=== PATIENT | male | born 1935 | race Caucasian/White ===

== ENCOUNTER 2018-07-01 19:24 | Observation (INO) | payer OTHER ==
--- OUTSIDE RECORDS SUMMARY | 2018-07-01 19:26 | XMS REPORT | Clinical Summary ---
:1935 Author Organization [facility] Address [address] [place] [id number] Care Team Providers Name Role Phone Atul Jones MD Primary Care Provider Allergies No Known Allergies Medications Medication Sig Dispensed Refills Start Date End Date Status diclofenac (VOLTAREN) Apply topically 4 100 g 2 03/02/2018 Active 1 % gel (four) times a day. Active Problems Problem Noted Date Chronic ankle pain, bilateral 03/02/2018 Encounters Date Type Specialty Care Team Description 03/02/2018 Office Visit Orthopedic Surgery Guy Starks, Arthritis of ankle (Primary Dx); Acute bilateral ankle pain 03/02/2018 Orders Only Orthopedic Surgery Arroyo, Shasha Chronic ankle pain, bilateral (Primary Dx) 03/02/2018 Orders Only Orthopedic Surgery Arroyo, Shasha after 06/30/2017 Social History Tobacco Use Types Packs/Day Years Used Date Never Assessed Sex Assigned at Date Recorded Not on file Job Start Date Occupation Industry Not on file Not on file Not on file Travel History Travel Start Travel End No recent travel history available. Last Filed Vital Signs Not on file Plan of Treatment Date Type Specialty Care Team Description 07/13/2018 Office Visit Orthopedic Surgery Guy Starks MD [address] [facility] [address] [place] [address] Health Maintenance Due Date Last Done Comments SHINGLES VACCINES (1 of 2) 1986 PNEUMOCOCCAL POLYSACCHARIDE VACCINE AGE 65 AND OVER 2001 PNEUMOCOCCAL-13 2001 INFLUENZA VACCINE 02/08/2018 Procedures Procedure Name Priority Date/Time Associated Diagnosis Comments XR ANKLE 3 VW Routine 03/02/2018 10:52 AM Acute bilateral Results for this BILATERAL CDT ankle pain procedure are in the results section. after 06/30/2017 Results XR Ankle 3 Vw Bilateral (03/02/2018 10:52 AM CDT) Narrative Performed At 3 views of bilateral ankles obtained today demonstrate no acute fractures [facility] or dislocations.Mild degenerative changes are seen at the tibiotalar and subtalar joint.Osteopenia is present. Performing Organization Address City/State/Zipcode Phone Number [facility] [address] [place] [address] after 06/30/2017 Insurance Payer Benefit Plan / Group Subscriber ID Type Phone Address [employer] MEDICARE HU[employer]NA MEDICARE PPO/PFFS/[facility] xxxxxxxxx PPO Advance Directives Patient has advance care planning documents on file. For more information, please contact:Ray Rivas[address] [place] [address]
[2018-07-01 20:43] LABS: Absolute Lymphocytes (CBC) 2.5 K/uL (0.7-4.9); Absolute Monocytes 1.2 K/uL (0.1-1.3); Basophils % 1.4 % (0-1.3); Eosinophils % 1.5 % (0-4.4); Hematocrit 41.4 % (39.6-49.0); Lymphocytes % 20.5 % (15.3-44.8); MPV 7.7 fL (7.6-11.3); Monocytes % 9.8 % (3.3-12.3); RBC Red Blood Cell Count 4.03 M/uL (4.33-5.43)
[2018-07-01] MEDS ORDERED: FENTANYL CITR 100 MCG/2 ML ONE (20:50)
[2018-07-01] MEDS ORDERED: ONDANSETRON 4 MG/2 ML VIAL ONE (20:50)
[2018-07-01] MEDS ORDERED: NA CHLORIDE 0.9% 1,000 ML ONE (20:51)
[2018-07-01 20:52] LABS: Protime INR 1.03
[2018-07-01 21:10] LABS: ALT/SGPT 58 U/L (12-78); AST/SGOT 25 U/L (15-37); Albumin 3.4 g/dL (3.4-5.0); Alkaline Phosphatase 128 U/L (45-117); BUN Blood Urea Nitrogen 20 mg/dL (7-18); Bicarbonate 24 mmol/L (21-32); Bilirubin Direct 0.2 mg/dL (0-0.2); Bilirubin Total 0.5 mg/dL (0.2-1.0); Glucose Level 121 mg/dL (74-106); Lipase 85 U/L (73-393); Magnesium 2.9 mg/dL (1.8-2.4); NT PRO-BNP 160 pg/mL (<450); Potassium 4.3 mmol/L (3.5-5.1); Protein, Total 7.8 g/dL (6.4-8.2); Sodium Level 136 mmol/L (136-145); Troponin (Emerg Dept Use Only) < 0.02 ng/mL (0.0-0.045)
--- NOTE | 2018-07-01 21:15 | RAD REPORT ---
EXAM DESCRIPTION: RAD - Chest Single View - 07/01/2018 8:53 pm CLINICAL HISTORY: Abdominal pain, abdominal distention COMPARISON: August 2017 TECHNIQUE: AP portable chest image was obtained 2038 hours . FINDINGS: Lung volumes are low accentuating heart, vasculature and lung markings. Lung markings are not substantially different. Shallow inspiration and portable technique could mask early left base in filtrate. Significant failure or volume overload are doubtful. Heart size is stable, magnified by the shallow inspiration and portable technique. No measurable pleural effusion and no pneumothorax. Underlying bony degenerative changes are present. There are fracture changes involving the proximal r ight humerus. No directed imaging at this facility. Correlation is needed with any history of right p roximal humerus fracture. The proximal right humerus is only partially imaged on this study. No acute aortic findings suspected. IMPRESSION: Limited shallow inspiration film not substantially different from August comparison. Chronic lung parenchymal opacification, shallow inspiration and under penetrated technique can result in masked lung base infiltrates. Proximal right humerus is fractured but only partially imaged on this study. Correlation is needed wi th any history.
--- NOTE | 2018-07-01 21:15 | RAD REPORT ---
EXAM DESCRIPTION: CT - Stone Protocol - 07/01/2018 8:42 pm CLINICAL HISTORY: Abdominal pain, back pain, abdominal distention COMPARISON: None. TECHNIQUE: Axial 5 mm thick images were obtained without oral or IV contrast. The [id number] span s the entirety of the system including uppermost abdomen and lung bases. All CT scans are performed using dose optimization technique as appropriate and may include automated exposure control or mA/KV adjustment according to patient size. FINDINGS: No hydronephrosis is present and no obstructing ureteral calculi. Small nonobstructing maylin yx calcification in each kidney. No suspicious renal masses. Isodense masses and pyelonephritis are n ot excluded on a stone protocol CT scan. No urinary bladder suspicious finding. No significant adrena l finding. Imaged portions of the liver, spleen and pancreas show no suspicious findings on non-contrast imaging . Liver attenuation is borderline to mildly fatty infiltrated. No gallbladder or biliary tree abnorma lity. No suspicious bowel findings. Moderate stool volume in the colon. Sigmoid colon is tortuous and redun dant reaching the anterior upper right abdomen. No active GI process seen. No mass or bulky lymphadenopathy. Fat extends into the origin of each inguinal canal. No free air, fr ee fluid or inflammatory stranding. No significant bony abnormality. Interstitial markings are prominent in each lung base. No pleural fluid collection. No dense consolid ation or mass. No pericardial thickening or effusion. The is IMPRESSION: No hydronephrosis, obstructing calculus or acute finding. Each kidney has a nonobstru ctive calyx calcification. Isodense masses and pyelonephritis are not excluded on stone protocol technique. Liver is borderline to mildly fatty infiltrated.
[2018-07-01] MEDS ORDERED: CIPROFLOXACIN 400mg IV 400 MG/200 ML BAG IV ONE (21:41)
[2018-07-01] MEDS ORDERED: METRONIDAZOLE 500mg IVPB 500 MG/100 ML BAG IV ONE (21:41)
--- NOTE | 2018-07-01 22:06 | RAD REPORT ---
EXAM DESCRIPTION: CT - Angio Aorta For Dissection - 07/01/2018 9:50 pm CLINICAL HISTORY: Abdominal pain, abdominal distention, pain of the chest radiating to the back COMPARISON: CT abdomen and pelvis same date, CT chest September 05, 2017 TECHNIQUE: Dynamically enhanced 3 mm thick images of the chest, abdomen, and upper pelvis were obtai dominguez during administration of approximately 150mL Isovue 370 IV contrast. Sagittal and coronal reconst ruction images were generated using MIP and reviewed. Exam utilizes a protocol to evaluate entire cou rse of the aorta. All CT scans are performed using dose optimization technique as appropriate and may include automated exposure control or mA/KV adjustment according to patient size. FINDINGS: Aorta is normal in diameter with no dissection or other acute aortic findings. Reconstruct ion images show no significant findings. Pulmonary arteries are normal as well. No cardiomegaly, pericardial thickening or pericardial effusio n. No focal mass or consolidation. Prominent interstitial markings are present in a pattern similar to c omparison. This would indicate that this is fibrotic lung disease and not chronic interstitial infilt rate. Minimal parenchymal nodularity has not changed. No pleural thickening, pleural effusion or pneu mothorax. No abnormal mediastinal or hilar mass or lymphadenopathy seen. No chest wall mass or abnormal axillar y lymphadenopathy. Celiac, SMA and renal arteries show no suspicious findings. Solid abdominal viscera and bowel show no new findings from earlier study. No new abdomen or pelvis findings. IMPRESSION: Negative CT scan of the aorta for acute finding. Chronic interstitial fibrotic change matching a August 2015 study. No other significant findings on chest, abdomen and upper pelvis examination.
[2018-07-01 22:41] LABS: Urine Blood NEGATIVE (NEG); Urine Glucose NEGATIVE (NEG); Urine Protein NEGATIVE (NEG); Urine Specific Gravity 1.015 (1.005-1.030)
--- NOTE | 2018-07-01 22:46 | ER ---
Nurse's Notes [facility] Name: Mick Sabillon Age: 82 yrs Sex: Male : 1935 Arrival Date: 07/01/2018 Time: 19:26 Bed 16 Private MD: Diagnosis: Abdominal tenderness;Dementia in other diseases classified elsewhere Presentation: 07/01 19:35 Presenting complaint: Patient states: "I've passed stones before, that what's happening aj1 now, they usually just give me a shot of Demerol and send me on my way" Patient reports lower back pain for the past week that has gotten worse over the past 2 days. Patient reports taking hydrocodone, but it isn't helping the pain. Transition of care: patient was not received from another setting of care. Onset of symptoms was June 2018. Risk Assessment: Do you want to hurt yourself or someone else? Patient reports no desire to harm self or others. Initial Sepsis Screen: Does the patient meet any 2 criteria? HR > 90 bpm. No. Patient's initial sepsis screen is negative. Does the patient have a suspected source of infection? Yes: Dysuria/Frequency/Urgency/UTI. Care prior to arrival: None. 19:35 Method Of Arrival: Wheelchair aj1 19:35 Acuity: TIMOTHY 3 aj1 Triage Assessment: 19:38 General: Appears in no apparent distress. uncomfortable, Behavior is calm, cooperative, aj1 appropriate for age. Pain: Complains of pain in back Pain currently is 10 out of 10 on a pain scale. Neuro: Level of Consciousness is awake, alert, obeys commands. Cardiovascular: Patient's skin is warm and dry. Respiratory: Airway is patent Respiratory effort is even, unlabored, Respiratory pattern is regular, symmetrical. Musculoskeletal: Range of motion: intact in all extremities. Historical: - Allergies: 19:38 No Known Allergies; aj1 - PMHx: 19:38 Anxiety; Atrial Fib; Brain bleed; Chronic pain; Depression; FACTOR 5; factor 5 leiden; aj1 Gastric Reflux; GERD; possibly CHF or pedal edema-unknown reason for taking Lasix; - Immunization history:: Flu vaccine is up to date. - Social history:: Smoking status: Patient/guardian denies using tobacco. - Ebola Screening: : Patient denies travel to an Ebola-affected area in the 21 days before illness onset. - Family history:: not pertinent. Screenin:46 Abuse screen: Denies threats or abuse. Denies injuries from another. Nutritional cc3 screening: No deficits noted. Tuberculosis screening: No symptoms or risk factors identified. Fall Risk Ambulatory Aid- None/Bed Rest/Nurse Assist (0 pts). Gait- Weak (10 pts.). Mental Status- Oriented to own ability (0 pts). Assessment: 19:46 General: Appears in no apparent distress. comfortable, Behavior is calm, cooperative, cc3 appropriate for age. Pain: Complains of pain in posterior aspect of right lateral abdomen and anterior aspect of right lateral abdomen and suprapubic area and abdomen and right lower quadrant and right upper quadrant and right low back and right mid back and back. Neuro: Level of Consciousness is awake, alert, obeys commands, Oriented to person, place, time, situation, Appropriate for age. Cardiovascular: Denies chest pain. Respiratory: Airway is patent Respiratory effort is even, unlabored, Respiratory pattern is regular, symmetrical. GI: Abdomen is round distended. : No signs and/or symptoms were reported regarding the genitourinary system. EENT: No signs and/or symptoms were reported regarding the EENT system. Derm: dry and scaly skin with dry healed wounds all over his face and bilateral upper extremities. Musculoskeletal: Circulation, motion, and sensation intact. Range of motion: limited in bilateral lower limbs. 20:30 Reassessment: Patient appears in no apparent distress at this time. Patient and/or cc3 family updated on plan of care and expected duration. Pain level reassessed. Patient is alert, oriented x 3, equal unlabored respirations, skin warm/dry/pink. Patient's daughter Farrah left her mobile number [phone] and [phone]. 21:40 Reassessment: Patient appears in no apparent distress at this time. Patient and/or cc3 family updated on plan of care and expected duration. Pain level reassessed. Patient is alert, oriented x 3, equal unlabored respirations, skin warm/dry/pink. 22:15 Reassessment: Patient appears in no apparent distress at this time. Patient and/or cc3 family updated on plan of care and expected duration. Pain level reassessed. Patient is alert, oriented x 3, equal unlabored respirations, skin warm/dry/pink. 23:20 Reassessment: Patient complains of itchiness on the left hand while the IV cc3 Ciprofloxacin is ongoing so stopped the IV antibiotic and informed Dr. Rosenberg, no new orders made. 23:45 Reassessment: Patient complains of back pain, informed Dr. Rosenberg but no new orders cc3 made. Patient for admission, room available in 213, report handed over to BIBI Zapata for continuity of care. 07/02 00:20 Reassessment: Patient appears in no apparent distress at this time. Patient and/or cc3 family updated on plan of care and expected duration. Pain level reassessed. Patient is alert, oriented x 3, equal unlabored respirations, skin warm/dry/pink. Patient left ER for admission vitally stable by stretcher escorted by equipment maint tech Ton. Vital Signs: 07/01 19:38 BP 119 / 74; Pulse 97; Resp 18; Temp 97.9; Pulse Ox 95% on R/A; Weight 86.18 kg (R); aj1 Pain 10/10; 20:25 BP 129 / 69; Pulse 95; Resp 18 S; Pulse Ox 95% on R/A; cc3 21:40 BP 127 / 69; Pulse 95; Resp 17 S; Pulse Ox 96% on R/A; cc3 22:35 BP 123 / 67; Pulse 93; Resp 17 S; Pulse Ox 95% on R/A; cc3 23:20 BP 112 / 79; Pulse 89; Resp 17 S; Pulse Ox 95% on R/A; cc3 07/02 00:15 BP 105 / 94; Pulse 93; Resp 17 S; Pulse Ox 95% on R/A; cc3 ED Course: 07/01 19:26 Patient arrived in ED. ag3 19:37 Triage completed. aj1 19:38 Arm band placed on Patient placed in an exam room. aj1 19:43 David Rosenberg MD is Attending Physician. [facility] 19:46 Nicole Goldsmith is Primary Nurse. cc3 19:46 Patient has correct armband on for positive identification. Placed in gown. Bed in low cc3 position. Call light in reach. Side rails up X2. gambling monitor on. Pulse ox on. NIBP on. 20:20 Inserted saline lock: 22 gauge in left hand, using aseptic technique. Blood collected. cc3 inserted by BIBI Aguilar. 20:42 CT Stone Protocol In Process Unspecified. EDMS 20:47 CT completed. Patient moved back from CT. bq 20:50 XRAY Chest (1 view) In Process Unspecified. EDMS 21:51 CT Aorta for Dissection In Process Unspecified. EDMS 22:41 Angela Baker MD is Hospitalizing Provider. laurel 23:45 No provider procedures requiring assistance completed. Patient admitted, IV remains in cc3 place. Administered Medications: 20:50 Drug: NS 0.9% 1000 ml Route: IV; Rate: 125 ml/hr; Site: left hand; cc3 23:45 Follow up: Response: No adverse reaction; IV Status: Infusion continued upon admission cc3 20:55 Drug: fentaNYL (PF) 50 mcg Route: IVP; Site: left hand; cc3 21:30 Follow up: Response: No adverse reaction cc3 21:02 Drug: Zofran 4 mg Route: IVP; Site: left hand; cc3 21:30 Follow up: Response: No adverse reaction cc3 22:15 Drug: Flagyl 500 mg Volume: 100 ml; Route: IVPB; Rate: 200 ml/hr; Infused Over: 30 rr5 mins; Site: left forearm; 22:45 Follow up: Response: No adverse reaction; IV Status: Completed infusion; IV Intake: cc3 100ml 22:20 Drug: Cipro 400 mg Volume: 200 ml; Route: IVPB; Infused Over: 60 mins; Site: left hand; rr5 Intake: 22:45 IV: 100ml; Total: 100ml. cc3 Outcome: 22:46 Decision to Hospitalize by Provider. laurel 23:45 Admitted to Med/surg accompanied by tech, via stretcher, room 213, with chart, Report cc3 called to BIBI Zapata 23:45 Condition: stable 23:45 Instructed on the need for admit, Demonstrated understanding of instructions. 07/02 00:30 Patient left the ED. cc3 Signatures: Dispatcher [employer] Gaye Ceja RN RN aj1 David Rosenberg MD MD cha Quilty, Betty bq Cordel, Charlene cc3 Kiley Lira Raymond, RN RN rr5 Corrections: (The following items were deleted from the chart) 03:46 07/01 20:30 Reassessment: Patient's daughter Farrah left her mobile number [phone] cc3 and [phone]. cc3 07/02 03:52 07/01 23:20 Reassessment: Patient complains of itchiness on the left hand while the IV cc3 Ciprofloxacin is ongoing so stopped the IV antibiotic and informed Dr. Rosenberg, no new orders made. cc3 07/02 03:52 07/01 23:45 Reassessment: Patient for admission, room available in 213, report handed cc3 over to BIBI Zapata for continuity of care. cc3
--- NOTE | 2018-07-01 22:47 | EDPHYS ---
Physician Documentation [facility] Name: Mick Sabillon Age: 82 yrs Sex: Male : 1935 Arrival Date: 07/01/2018 Time: 19:26 Bed 16 Private MD: ED Physician David Rosenberg HPI: 07/01 20:22 This 82 yrs old Male presents to ER via Wheelchair with complaints of Back laurel Pain. 20:22 The patient presents with pain that is acute, with no known mechanism of injury. The laurel symptoms are located in the right mid back and right low back. Onset: The symptoms/episode began/occurred 1 day(s) ago. The pain radiates to the right upper quadrant and right lower quadrant. Associated signs and symptoms: The patient has no apparent associated signs or symptoms. The problem was sustained from unknown cause. Modifying factors: The patient symptoms are alleviated by nothing, the patient symptoms are aggravated by any movement, walking. Severity of symptoms: At their worst the symptoms were. The patient has experienced similar episodes in the past, several times. Historical: - Allergies: 19:38 No Known Allergies; aj1 - PMHx: 19:38 Anxiety; Atrial Fib; Brain bleed; Chronic pain; Depression; FACTOR 5; factor 5 leiden; aj1 Gastric Reflux; GERD; possibly CHF or pedal edema-unknown reason for taking Lasix; - Immunization history:: Flu vaccine is up to date. - Social history:: Smoking status: Patient/guardian denies using tobacco. - Ebola Screening: : Patient denies travel to an Ebola-affected area in the 21 days before illness onset. - Family history:: not pertinent. ROS: 20:22 Constitutional: Negative for fever, chills, and weight loss, Eyes: Negative for injury, laurel pain, redness, and discharge, ENT: Negative for injury, pain, and discharge, Neck: Negative for injury, pain, and swelling, Cardiovascular: Negative for chest pain, palpitations, and edema, Respiratory: Negative for shortness of breath, cough, wheezing, and pleuritic chest pain, Back: Negative for injury and pain, : Negative for injury, bleeding, discharge, and swelling, MS/Extremity: Negative for injury and deformity, Skin: Negative for injury, rash, and discoloration, Neuro: Negative for headache, weakness, numbness, tingling, and seizure, Psych: Negative for depression, anxiety, suicide ideation, homicidal ideation, and hallucinations, Allergy/Immunology: Negative for hives, rash, and allergies, Endocrine: Negative for neck swelling, polydipsia, polyuria, polyphagia, and marked weight changes, Hematologic/Lymphatic: Negative for swollen nodes, abnormal bleeding, and unusual bruising. 20:22 Abdomen/GI: Positive for abdominal pain, of the suprapubic area, anterior aspect of right lateral abdomen, posterior aspect of right lateral abdomen, right upper quadrant and right lower quadrant. Exam: 20:24 Constitutional: This is a well developed, well nourished patient who is awake, alert, laurel and in no acute distress. Head/Face: Normocephalic, atraumatic. Eyes: Pupils equal round and reactive to light, extra-ocular motions intact. Lids and lashes normal. Conjunctiva and sclera are non-icteric and not injected. Cornea within normal limits. Periorbital areas with no swelling, redness, or edema. ENT: Nares patent. No nasal discharge, no septal abnormalities noted. Tympanic membranes are normal and external auditory canals are clear. Oropharynx with no redness, swelling, or masses, exudates, or evidence of obstruction, uvula midline. Mucous membranes moist. Neck: Trachea midline, no thyromegaly or masses palpated, and no cervical lymphadenopathy. Supple, full range of motion without nuchal rigidity, or vertebral point tenderness. No Meningismus. Chest/axilla: Normal chest wall appearance and motion. Nontender with no deformity. No lesions are appreciated. Cardiovascular: Regular rate and rhythm with a normal S1 and S2. No gallops, murmurs, or rubs. Normal PMI, no JVD. No pulse deficits. Respiratory: Lungs have equal breath sounds bilaterally, clear to auscultation and percussion. No rales, rhonchi or wheezes noted. No increased work of breathing, no retractions or nasal flaring. Back: No spinal tenderness. No costovertebral tenderness. Full range of motion. Male : Normal genitalia with no discharge or lesions. Skin: Warm, dry with normal turgor. Normal color with no rashes, no lesions, and no evidence of cellulitis. MS/ Extremity: Pulses equal, no cyanosis. Neurovascular intact. Full, normal range of motion. Neuro: Awake and alert, GCS 15, oriented to person, place, time, and situation. Cranial nerves II-XII grossly intact. Motor strength 5/5 in all extremities. Sensory grossly intact. Cerebellar exam normal. Normal gait. Psych: Awake, alert, with orientation to person, place and time. Behavior, mood, and affect are within normal limits. 20:24 Abdomen/GI: Inspection: distension, Bowel sounds: normal, Palpation: moderate abdominal tenderness, in the suprapubic area, right upper quadrant and right lower quadrant, Liver: no appreciated palpable abnormalities, Hernia: not appreciated. Vital Signs: 19:38 BP 119 / 74; Pulse 97; Resp 18; Temp 97.9; Pulse Ox 95% on R/A; Weight 86.18 kg (R); aj1 Pain 10/10; 20:25 BP 129 / 69; Pulse 95; Resp 18 S; Pulse Ox 95% on R/A; cc3 21:40 BP 127 / 69; Pulse 95; Resp 17 S; Pulse Ox 96% on R/A; cc3 22:35 BP 123 / 67; Pulse 93; Resp 17 S; Pulse Ox 95% on R/A; cc3 23:20 BP 112 / 79; Pulse 89; Resp 17 S; Pulse Ox 95% on R/A; cc3 07/02 00:15 BP 105 / 94; Pulse 93; Resp 17 S; Pulse Ox 95% on R/A; cc3 MDM: 07/01 19:43 Patient medically screened. [facility] 20:25 Data reviewed: vital signs, nurses notes, lab test result(s), EKG, radiologic studies, [facility] CT scan, plain films. 07/01 20:21 Order name: Basic Metabolic Panel; Complete Time: 21:14 [facility] 07/01 20: Order name: CBC with Diff; Complete Time: 21:14 [facility] 07/01 20:21 Order name: LFT's; Complete Time: 21:14 [facility] 07/01 20:21 Order name: Magnesium; Complete Time: 21:14 [facility] 07/01 20:21 Order name: NT PRO-BNP; Complete Time: 21:14 [facility] 07/01 20:21 Order name: PT-INR; Complete Time: 21:14 [facility] 07/01 20:21 Order name: Troponin (emerg Dept Use Only); Complete Time: 21:14 [facility] 07/01 20:21 Order name: Lipase; Complete Time: 21:14 [facility] 07/01 20:21 Order name: Urine Culture [facility] 07/01 22:20 Order name: Urine Dipstick--Ancillary (enter results) 07/01 23:30 Order name: CBC with Automated Diff [facility] 07/01 23:30 Order name: CBC with Automated Diff [facility] 07/01 23:30 Order name: Comprehensive Metabolic Panel [facility] 07/01 23:30 Order name: Comprehensive Metabolic Panel [facility] 07/01 20:21 Order name: XRAY Chest (1 view); Complete Time: 21:19 [facility] 07/01 20:21 Order name: EKG; Complete Time: 20:22 [facility] 07/01 20:21 Order name: Cardiac monitoring; Complete Time: 20:29 [facility] 07/01 20:21 Order name: EKG - Nurse/Tech; Complete Time: 21:04 [facility] 07/01 20:21 Order name: IV Saline Lock; Complete Time: 20:29 [facility] 07/01 20:21 Order name: Labs collected and sent; Complete Time: 20:29 [facility] 07/01 20:21 Order name: O2 Per Protocol; Complete Time: 20:29 [facility] 07/01 20:21 Order name: CT Stone Protocol; Complete Time: 21:19 [facility] 07/01 21:23 Order name: CT Aorta for Dissection; Complete Time: 22:21 [facility] 07/01 23:30 Order name: CONS Pharmacy Consult [facility] 07/01 23:30 Order name: Full Liquid [facility] 07/01 20:21 Order name: O2 Sat Monitoring; Complete Time: 20:29 [facility] 07/01 20:21 Order name: Urine Dipstick-Ancillary (obtain specimen); Complete Time: 22:53 [facility] Administered Medications: 20:50 Drug: NS 0.9% 1000 ml Route: IV; Rate: 125 ml/hr; Site: left hand; cc3 23:45 Follow up: Response: No adverse reaction; IV Status: Infusion continued upon admission cc3 20:55 Drug: fentaNYL (PF) 50 mcg Route: IVP; Site: left hand; cc3 21:30 Follow up: Response: No adverse reaction cc3 21:02 Drug: Zofran 4 mg Route: IVP; Site: left hand; cc3 21:30 Follow up: Response: No adverse reaction cc3 22:15 Drug: Flagyl 500 mg Volume: 100 ml; Route: IVPB; Rate: 200 ml/hr; Infused Over: 30 rr5 mins; Site: left forearm; 22:45 Follow up: Response: No adverse reaction; IV Status: Completed infusion; IV Intake: cc3 100ml 22:20 Drug: Cipro 400 mg Volume: 200 ml; Route: IVPB; Infused Over: 60 mins; Site: left hand; rr5 Disposition: 07/01/18 22:46 Hospitalization ordered by Angela Baker for Observation. Preliminary diagnosis are Abdominal tenderness, Dementia in other diseases classified elsewhere. - Bed requested for Telemetry/MedSurg (observation). - Status is Observation. cc3 - Condition is Stable. - Problem is new. - Symptoms have improved. UTI on Admission? No Signatures: Dispatcher [employer] EDMS Gaye Ott RN RN aj1 David Rosenberg MD MD cha Garcia, Cindy, RN RN cg Nicole Goldsmith cc3 Selwyn Zapata RN RN rr5 Corrections: (The following items were deleted from the chart) 23:36 22:46 Hospitalization Ordered by Angela Baker MD for Observation. Preliminary cg diagnosis is Abdominal tenderness; Dementia in other diseases classified elsewhere. Bed requested for Telemetry/MedSurg (observation). Status is Observation. Condition is Stable. Problem is new. Symptoms have improved. UTI on Admission? No. laurel 07/02 00:30 07/01 23:36 07/01/2018 22:46 Hospitalization Ordered by Angela Baker MD for cc3 Observation. Preliminary diagnosis is Abdominal tenderness; Dementia in other diseases classified elsewhere. Bed requested for Telemetry/MedSurg (observation). Status is Observation. Condition is Stable. Problem is new. Symptoms have improved. UTI on Admission? No. cg
[2018-07-01] MEDS ORDERED: ONDANSETRON 4 MG/2 ML VIAL IV PRN (23:22)
[2018-07-01] MEDS ORDERED: ACETAMINOPHEN 500 MG TAB PO PRN (23:22)
[2018-07-02] MEDS: NA CHLORIDE 0.9% 1,000 ML IV SCH ×2 (00:36→08:42)
[2018-07-02] MEDS: MORPHINE 2 MG/ML SYR IV PRN ×3 (00:36→08:37)
[2018-07-02 00:58] VITALS: O2SAT 95; BMI 34.7
[2018-07-02 05:17] LABS: Absolute Lymphocytes (CBC) 1.5 K/uL (0.7-4.9); Absolute Neutrophil 5.6 K/uL (1.8-8.0); Basophils % 0.9 % (0-1.3); Eosinophils % 2.9 % (0-4.4); Hematocrit 39.2 % (39.6-49.0); Lymphocytes % 18.1 % (15.3-44.8); MPV 7.7 fL (7.6-11.3); Monocytes % 12.1 % (3.3-12.3)
[2018-07-02 05:35] LABS: Albumin 3.1 g/dL (3.4-5.0); Bilirubin Total 0.7 mg/dL (0.2-1.0); Potassium 3.8 mmol/L (3.5-5.1)
--- NOTE | 2018-07-02 08:36 | P.HP ---
Certification for Inpatient Patient admitted to: Inpatient With expected LOS: >2 Midnights Patient will require the following post-hospital care: None Practitioner: I am a practitioner with admitting privileges, knowledge of patient current condition, hospital course, and medical plan of care. Services: Services provided to patient in accordance with Admission requirements found in Title 42 Section 412.3 of the Code of Federal Regulations Patient History Date of Service: 07/01/18 Reason for admission: Complained of abdominal pain History of Present Illness: Patient is an 82-year-old gentleman who came into the hospital with complaints of abdominal pain. Patient lives at home alone. He does have not daughter who lives close by. She apparently helps take care of him. He came into the hospital after he was having significant abdominal pain. Pain was mainly on the right side. It was tender to palpation. He also has pain on inspiration. His CT scan and CT dissection of the abdomen were negative. There does not appear to be an intra-abdominal issue going on that is causing his degree of pain however on further review of his chest x-ray there is a humeral fracture. This may be related to the fact that he has some scalp injuries and had fallen recently. He does not appear to be aware of much of what is going on. He may have fallen and suffered more than the humeral fracture. He could also have some rib fractures. Will go ahead and get x-rays to further assess his ribs and his right upper extremity. Allergies No Known Allergies Allergy (Verified 07/02/18 01:40) Home Medications: Apixaban [Eliquis] 5 mg PO BID 10/15/16 Buspirone HCl [Buspar] 1 tab PO BID 10/15/16 Acetaminophen with Codeine [Tylenol with Codeine #4 Tablet] 1 - 2 each PO BID PRN 05/30/17 Ropinirole HCl [Requip*] 1 tab PO BEDTIME PRN 05/30/17 Zolpidem Tartrate [Ambien*] 10 mg PO BEDTIME 05/30/17 Benzonatate [Tessalon Perle*] 200 mg PO BIDP PRN #14 cap 05/31/17 Albuterol Sulfate [Proair Hfa] 1 puff IH Q6H PRN 09/05/17 Furosemide [Lasix] 40 mg PO BID 09/05/17 Gabapentin 600 mg PO TID 09/05/17 Lubiprostone [Amitiza*] 1 tab PO BID PRN 09/05/17 Pantoprazole Sodium [Protonix] 40 mg PO DAILY 09/05/17 clonazePAM [Klonopin*] 0.5 mg PO BEDTIME PRN 09/05/17 Benzonatate [Tessalon Perle*] 200 mg PO BIDP PRN #30 cap 09/06/17 Pantoprazole Sodium [Protonix] 40 mg PO DAILY #30 tablet. 09/06/17 - Past Medical/Surgical History Has patient received pneumonia vaccine in the past: Yes Diabetic: No -: a-fib -: anxiety -: chronic pain -: depression -: GERD -: brain bleed -: Factor 5 -: DVT after having left leg crushed many years ago -: neck sx -: Both shoulder sx rotator cuff -: Appendectomy - Family History Father Medical History: Diabetes Mother Medical History: Heart disease Notes: Factor 5 blood clotting disease - Social History Smoking Status: Never smoker Alcohol use: No CD- Drugs: No Caffeine use: Yes Place of Residence: Home Review of Systems 10-point ROS is otherwise unremarkable Physical Examination - Vital Signs Temperature: 97.1 F Blood Pressure: 148/64 Pulse: 91 Respirations: 16 Pulse Ox (%): 92 - Physical Exam General: Alert, In no apparent distress, Oriented x3 HEENT: Atraumatic, PERRLA, Mucous membr. moist/pink, EOMI, Sclerae nonicteric Neck: Supple, 2+ carotid pulse no bruit, No LAD, Without JVD or thyroid abnormality Respiratory: Diminished, Expiratory wheezes Cardiovascular: Regular rate/rhythm, Normal S1 S2, No murmurs Gastrointestinal: Normal bowel sounds, Soft and benign, Non-distended, No guarding, Tenderness, Rebound Musculoskeletal: No clubbing, No contractures, No tenderness Integumentary: No rashes, No breakdown Neurological: Normal gait, Normal speech, Normal strength at 5/5 x4 extr, Normal tone, Sensation intact, Cranial nerves 3-12 intact, Normal affect Lymphatics: No axilla or inguinal lymphadenopathy - Studies Laboratory Data (last 24 hrs) 07/01/18 20:20: PT 12.2, INR 1.03 07/01/18 20:20: WBC 12.0 H, Hgb 14.0, Hct 41.4, Plt Count 193 07/01/18 20:20: Sodium 136, Potassium 4.3, BUN 20 H, Creatinine 1.23, Glucose 121 H, Magnesium 2.9 H, Total Bilirubin 0.5, AST 25, ALT 58, Alkaline Phosphatase 128 H, Lipase 85 Assessment & Plan - Problems (Diagnosis) (1) Abdominal pain Current Visit: Yes Status: Acute (2) Status post fall Current Visit: Yes Status: Acute (3) Pleuritic chest pain Current Visit: Yes Status: Acute (4) Humeral fracture Current Visit: Yes Status: Acute (5) Chronic depression Onset Date: 05/31/17 Current Visit: No Status: Acute (6) Atrial fibrillation Onset Date: 05/31/17 Current Visit: No Status: Chronic Qualifiers: (7) Factor 5 Leiden mutation, heterozygous Onset Date: 05/31/17 Current Visit: No Status: Chronic (8) History of stroke Current Visit: No Status: Chronic - Plan Plan: 1. Fall precautions 2. Dedicated right upper extremity x-rays as well is right rib x-rays 3. Pain control 4. May need physical therapy evaluation 5. Monitor labs 6. Orthopedic consultation 7. GI and DVT prophylaxis Discharge Plan: Home Plan to discharge in: Greater than 2 days - Advance Directives Does patient have a Living Will: Yes Does patient have a Durable POA for Healthcare: Yes - Code Status/Comfort Care Code Status Assessed: Yes Code Status: Full Code Critical Care: No Time Spent Managing PTS Care (In Minutes): 50
[2018-07-02 12:55] VITALS: BP 133/63; TEMP 97.8
--- NOTE | 2018-07-02 14:28 | P.SSS ---
Patient History Date of Service: 07/02/18 Reason for admission: Complained of abdominal pain History of Present Illness: Patient is an 82-year-old gentleman who came into the hospital with complaints of abdominal pain. Patient lives at home alone. He does have not daughter who lives close by. She apparently helps take care of him. He came into the hospital after he was having significant abdominal pain. Pain was mainly on the right side. It was tender to palpation. He also has pain on inspiration. His CT scan and CT dissection of the abdomen were negative. There does not appear to be an intra-abdominal issue going on that is causing his degree of pain however on further review of his chest x-ray there is a humeral fracture. This may be related to the fact that he has some scalp injuries and had fallen recently. He does not appear to be aware of much of what is going on. He may have fallen and suffered more than the humeral fracture. He could also have some rib fractures. Will go ahead and get x-rays to further assess his ribs and his right upper extremity Allergies No Known Allergies Allergy (Verified 07/02/18 01:40) Home Medications: Allopurinol 1 tab PO DAILY 07/02/18 Apixaban [Eliquis] 5 mg PO BID 07/02/18 Buspirone HCl [Buspar] 10 mg PO BID 07/02/18 Furosemide 1 tab PO BID 07/02/18 Hydrocodone Bit/Acetaminophen [Hydrocodon-Acetaminophen 5-325] 1 tab PO Q6HR PRN 07/02/18 Montelukast [Singulair*] 10 mg PO BEDTIME 07/02/18 Pantoprazole [Protonix Tab*] 1 tab PO DAILY 07/02/18 Ropinirole HCl [Requip*] 1 tab PO DAILY 07/02/18 clonazePAM [Clonazepam] 1 tab PO BEDTIME 07/02/18 - Past Medical/Surgical History Has patient received pneumonia vaccine in the past: Yes Diabetic: No -: a-fib -: anxiety -: chronic pain -: depression -: GERD -: brain bleed -: Factor 5 -: DVT after having left leg crushed many years ago -: neck sx -: Both shoulder sx rotator cuff -: Appendectomy - Family History Father -: Diabetes Mother -: Heart disease Notes: Factor 5 blood clotting disease - Social History Smoking Status: Never smoker Alcohol use: No CD- Drugs: No Caffeine use: Yes Place of Residence: Home Review of Systems 10-point ROS is otherwise unremarkable Physical Examination - Vital Signs Temperature: 97.8 F Blood Pressure: 133/63 Pulse: 86 Respirations: 18 Pulse Ox (%): 93 - Physical Exam General: Alert, In no apparent distress HEENT: Atraumatic, PERRLA, Mucous membr. moist/pink, EOMI, Sclerae nonicteric Neck: Supple, 2+ carotid pulse no bruit, No LAD, Without JVD or thyroid abnormality Respiratory: Clear to auscultation bilaterally, Normal air movement Cardiovascular: Regular rate/rhythm, Normal S1 S2 Gastrointestinal: Normal bowel sounds, No tenderness Musculoskeletal: No tenderness Integumentary: No rashes Neurological: Normal gait, Normal speech, Normal strength at 5/5 x4 extr, Normal tone, Normal affect Lymphatics: No axilla or inguinal lymphadenopathy - Studies Laboratory Data (last 24 hrs) 07/01/18 20:20: PT 12.2, INR 1.03 07/01/18 20:20: WBC 12.0 H, Hgb 14.0, Hct 41.4, Plt Count 193 07/01/18 20:20: Sodium 136, Potassium 4.3, BUN 20 H, Creatinine 1.23, Glucose 121 H, Magnesium 2.9 H, Total Bilirubin 0.5, AST 25, ALT 58, Alkaline Phosphatase 128 H, Lipase 85 - Diagnosis (Problem(s)) (1) Abdominal pain Current Visit: Yes Status: Resolved Qualifiers: Abdominal location: right lower quadrant Qualified Code(s): R10.31 - Right lower quadrant pain (2) Humeral fracture Current Visit: Yes Status: Chronic Qualifiers: Encounter type: initial encounter Fracture type: closed Laterality: right (3) Status post fall Current Visit: Yes Status: Acute (4) Atrial fibrillation Onset Date: 05/31/17 Current Visit: No Status: Chronic Qualifiers: Atrial fibrillation type: chronic (5) Factor 5 Leiden mutation, heterozygous Onset Date: 05/31/17 Current Visit: No Status: Chronic (6) History of stroke Current Visit: No Status: Chronic Treatment Summary: Overall during the hospital stay patient remained stable The patient was initially admitted to the hospital for abdominal pain. Abdominal CT was done which was negative for any acute abnormality. Chest x- ray was done which was positive for rib fracture and right humerus fracture. Patient's abdominal pain is most likely secondary to the trauma that he sustained after a fall. Patient however does not remember fall playing. Patient's has head laceration as well. Patient's family at bedside does mention that he has intermittent confusion every now and then and that is his baseline. All other lab work and imaging study were negative. Humerus x-ray and chest x-ray were ordered again however patient refused to get the imaging studies done. Orthopedics were consulted for humerus fracture who recommended the patient be placed on sling and he was fractures appears to be chronic nothing acute in nature. Patient then worked with physical therapy and was discharged home under stable condition. - Disposition Disposition: ROUTINE DISCHARGE Condition: GOOD Diet: Regular Activity: Ad kirsten
--- NOTE | 2018-07-02 17:28 | EKG ---
Test Date: 2018-07-01 Test Time: 20:59:48 Cnc Maintenance Technician: RR MEASUREMENT RESULTS: Intervals: Rate: 90 VT: 168 QRSD: 84 QT: 348 QTc: 425 Force: P: 26 VT: 168 QRS: -6 T: 59 INTERPRETIVE STATEMENTS: Normal sinus rhythm Minimal voltage criteria for LVH, may be normal variant Borderline ECG Compared to ECG 09/05/2017 09:33:50 Sinus arrhythmia no longer present ST (T wave) deviation no longer present Electronically Signed On 07-02-18 17:18:07 SUPERVISOR FUSING ROOM by Steven Mueller
--- NOTE | 2018-07-02 18:03 | CON ---
Reason For Consultation: Right proximal humerus fracture. History Of Present Illness: Mr. Sabillon is an 82-year-old gentleman, extremely poor historian. He toussaint s no recollection of injuring his right upper extremity whatsoever. He was admitted to the hospital for an unrelated complaint of abdominal pain and confusion. Comminuted proximal humerus fracture was noted on x-ray of his chest. We were consulted. On examination, he has minimal pain with motion, c omplains of chest and chest wall pain, he had rib fractures. [facility] again [facility], however, based on his rather benign exam and information we do have we would treat this with an arm sling and follow up with us in approximately 4 weeks. Repeat x-ray on followup. MIKI Voice ID: [id number] Report ID: [id number]
== END 2018-07-02 16:45 | disposition home or self-care (01) ==
LOC: ER 19:24 → ERHOLD 23:22 → INTOOBSV 23:22 → 2ND 23:48
PROVIDERS: ADMIT Hospitalist; ATTEND Hospitalist
DX: R10.31 Right lower quadrant pain (principal); S42.201A Unspecified fracture of upper end of right humerus, initial encounter for closed fracture; S22.49XA Multiple fractures of ribs, unspecified side, initial encounter for closed fracture; I48.91 Unspecified atrial fibrillation; D68.51 Activated protein C resistance; Z86.73 Personal history of transient ischemic attack (TIA), and cerebral infarction without residual deficits; F32.9 Major depressive disorder, single episode, unspecified; X58.XXXA Exposure to other specified factors, initial encounter; Y92.009 Unspecified place in unspecified non-institutional (private) residence as the place of occurrence of the external cause
CPT/HCPCS: 36415; 71045; 71275; 74175; 74176; 76377; 80048; 80053; 80076; 81003; 83690; 83735; 83880; 84484; 85025 ×2; 85610; 87086; 87088; 93005; 96361; 96365; 96375; 97162; 99285; G0378 ×2; J0744; J2270 ×3; J2405; J3010; J7030 ×2; Q9967